=== PATIENT | male | born 1950 | race Caucasian/White ===

== ENCOUNTER 2023-11-10 11:23 | Emergency (ER) | payer MEDICARE, OTHER, SELFPAY ==
--- NOTE | ~2023-11-10 | XR_ITS ---
[XR ribs BI 3V w CXR 2V ] INDICATION: Rib pain after fall TECHNIQUE: Frontal projection of the upper ribs, frontal projection of the lower ribs, oblique projec tion of all the ribs, frontal inspiratory chest x-ray for interpretation. FINDINGS: There are no displaced rib fractures identified. There are no soft tissue abnormality see n. The lungs are clear. IMPRESSION: 1:No acute displaced rib fractures. Reviewed, dictated and finalized at location A.
[2023-11-10 11:48] VITALS: BP 128/92; PULSE 106; RESP 16; TEMP 36.3; O2SAT 100
--- NOTE | 2023-11-10 11:59 | ED.GENADULT ---
HPI - General Adult General Chief complaint: Back Pain/Injury Stated complaint: FALL/BACK INJURY Source: patient, RN notes reviewed and old records reviewed Mode of arrival: ambulatory Limitations: no limitations History of Present Illness HPI narrative: 73-year-old male patient presents to [facility] with complaints mid back pain and bruising to right flank this started overnight after falling. Patient states alarm went off and he got a bed and slipped and hit a planter that was sitting on the floor. Patient denies hitting head, LOC, any other injury. Related Data Home Medications Medication Instructions Recorded Confirmed aspirin 81 mg tablet,delayed 81 mg PO DAILY 11/10/23 11/10/23 release (Adult Low Dose Aspirin) atorvastatin 20 mg tablet 20 mg PO HS 11/10/23 11/10/23 losartan 100 mg tablet 100 mg PO DAILY 11/10/23 11/10/23 metoprolol succinate 25 mg capsule 25 mg PO DAILY 11/10/23 11/10/23 sprinkle, ext. release 24 hr Allergies Allergy/AdvReac Type Severity Reaction Status Date / Time hydrocodone Allergy Unknown Verified 11/10/23 12:08 Review of Systems Constitutional: Constitutional: Reports no additional constitutional complaints, Denies body ache(s), Denies chills, Denies fatigue, Denies fever(s) and Denies headache(s) Eyes: Eyes: Reports no additional eye complaints and Denies blurry vision ENT: Reports system reviewed and no additional complaints, except as documented, Denies vertigo, Denies dizziness, Denies ear discharge, Denies otalgia, Denies facial pain, Denies headache(s), Denies nasal congestion, Denies nasal discharge, Denies sinus pain, Denies sinus pressure and Denies sore throat Cardiovascular: Cardiovascular: Reports no additional cardiovascular complaints, Denies chest pain, Denies chest pain at rest, Denies rapid heart rate and Denies dyspnea Respiratory: Respiratory: Reports no additional respiratory complaints, Denies chest congestion, Denies cough, Denies pain on inspiration, Denies pain with cough and Denies dyspnea Gastrointestinal: Gastrointestinal: Denies abdominal pain, Denies diarrhea, Denies nausea and Denies vomiting Musculoskeletal: Musculoskeletal: Reports back pain Comments: Large bruise noted to right flank Integumentary/Breasts: Skin/Breast: Denies rash Neurologic: Reports system reviewed and no additional complaints, except as documented, Denies vertigo, Denies dizziness and Denies headache(s) Endocrine: Endocrine: Denies fatigue PMFSH Past Medical History Medical History 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 There is no relevant family history pertinent to the patient complaint. Exam Const: General: cooperative, healthy appearing, no acute distress and well nourished Nutritional Appearance: well nourished Orientation/consciousness: patient oriented x3 Limitations: no limitations HENMT: Head: normal to inspection and normocephalic Ears: external ears normal Face/Nose/Sinus: normal facial exam Face and sinus: normal facial exam Mouth: Yes Normal oral and palatal mucosa present, Yes oropharynx normal and Yes moist mucous membranes Eyes: General: appearance normal, both eyes and all related structures Sclera: sclerae normal Pupils: Equal, round and reactive pupils present Resp: Effort & Inspection: normal respiratory effort, able to speak in complete sentences, no audible wheezes, no cough, no respiratory distress and no retractions Auscultation: clear to auscultation bilaterally, no crackles, no rales, no rhonchi and no wheezes Cardio: Rate: regular rate Rhythm: regular rhythm Back/Spine/Pelvis: Back: no CVA
== END 2023-11-10 13:05 | disposition home or self-care (01) ==
PROVIDERS: Emergency Provider Registered Nurse
DX: S20.221A Contusion of right back wall of thorax, initial encounter (principal); W01.0XXA Fall on same level from slipping, tripping and stumbling without subsequent striking against object, initial encounter; Z85.828 Personal history of other malignant neoplasm of skin; Z79.82 Long term (current) use of aspirin
CPT/HCPCS: 71046; 71110; 81003; 99213; G0463

== ENCOUNTER 2024-01-14 09:48 | Emergency (ER) | payer MEDICARE, OTHER, SELFPAY ==
[2024-01-14] VITALS (21 sets, daily range): BP systolic 98–119; BP diastolic 67–76; PULSE 40–100; RESP 12–19; TEMP 36.4; O2SAT 93–99
--- NOTE | ~2024-01-14 | XR_ITS ---
EXAMINATION: XR chest 2V DATE: 01/14/2024 10:52 INDICATION: Chest pain. TECHNIQUE: Frontal and lateral views of the chest were obtained. COMPARISON: Chest 2 views 11/10/2023 FINDINGS: There is a nodule in right lower lung zone overlying the right eighth rib. There is no pneu monia, pleural effusion, or pneumothorax. The heart size is normal. IMPRESSION: 1. New nodule in right lower lung zone overlying the right eighth rib, most likely a healing rib frac ture. Noncontrast chest CT is recommended to exclude lung malignancy. Reviewed, dictated and finalized at location E. IMPRESSION: 1. New nodule in right lower lung zone overlying the right eighth rib, most lik tavia a healing rib fracture. Noncontrast chest CT is recommended to exclude lung malignancy.
--- NOTE | 2024-01-14 09:50 | ECG_ITS ---
SEE SCANNED COPY FOR CONFIRMED REPORT MTDD
[2024-01-14 10:08] LABS: Basophils Percent Auto 0.2 % (0.2-1.2); Eosinophils Absolute Auto 0.1 K/mm3 (0-0.3); Eosinophils Percent Auto 0.7 % (0-4.4); Hematocrit 48.6 % (42.0-52.0); Hemoglobin 17.1 g/dL (14.0-18.0); Immature Granulocyte Absolute 0.02 K/mm3 (0.00-0.031); Immature Granulocyte Percent A 0.2 % (0-0.5); Mean Corpuscular HGB Conc 35.2 g/dl (32-36); Mean Corpuscular Hemoglobin 30.8 pg (26-34); Mean Corpuscular Volume 87.6 fl (80-100); Mean Platelet Volume 10.5 fl (7.4-10.4); Monocytes Absolute Auto 0.5 K/mm3 (0.1-0.6); Monocytes Percent Auto 5.1 % (2.6-8.5); Neutrophils Absolute Auto 8.4 K/mm3 (1.3-6.7); Neutrophils Percent Auto 78.8 % (45.5-73.1); Platelet Count Result 182 k/mm3 (150-375); Red Blood Count 5.55 M/mm3 (4.6-6.20); Red Cell Distribution Width 12.8 % (11.5-14.5); White Blood Count 10.7 K/mm3 (4.5-10.0)
[2024-01-14 10:19] LABS: Prothrombin Time 14.1 Seconds (11.1-14.7)
[2024-01-14 10:20] LABS: Alanine Aminotransferase 29 U/L (6-50); Albumin Level 4.7 g/dL (3.5-5.1); Alkaline Phosphatase 99 U/L (38-126); Anion Gap 7 mmol/L (4-12); Aspartate Amino Transferase 36 U/L (17-59); Blood Urea Nitrogen 16 mg/dL (9-20); Calcium 9.4 mg/dL (8.4-10.2); Carbon Dioxide 24 mmol/L (22-30); Chloride 107 mmol/L (98-107); Estimated CRCL calculation 97 ml/min; Estimated Glomerular Filt Rate > 60; Glucose 125 mg/dL (65-110); Lipase 53 U/L (23-300); Partial Thromboplastin Time 26.1 Seconds (22.3-36.8); Potassium 4.1 mmol/L (3.4-5.0); Sodium 138 mmol/L (137-145)
[2024-01-14 10:32] LABS: Troponin I < 0.012 ng/mL (0.000-0.034)
--- NOTE | 2024-01-14 12:01 | ED.CHESTPAIN ---
HPI - Chest Pain General Chief Complaint: Chest Pain Stated Complaint: chest pain Time Seen by Provider: 01/14/24 11:59 History of Present Illness HPI narrative: Patient is a 73-year-old male with history of coronary artery disease, hypertension, BPH here with palpitations. He states that yesterday he was feeling like his normal self. This morning when he woke up he had multiple episodes of diarrhea and abdominal discomfort. These have since subsided. He notes that around 5:36 a.m. this morning he started having palpitations. who was with him noted that he appeared to be pale and clammy at that time. He states that his heart rate was fluctuating between the 140s in the 40s per his Fitbit that he was wearing his wrist. He had some associated exertional shortness of breath throughout the morning this morning. He does note that he has not drink much water since having his diarrhea and typically does not drink very much water. He was started on Flomax throughout the last year and this does cause him to have some lower blood pressures. He has a history of 5 prior stents placed in 2004 at [facility]. Currently follows with a resawyer out of [facility]. No history of abnormal heart rhythms. He has not on any blood thinners, takes a baby aspirin. No recent travel, no recent surgeries. No lower extremity edema or calf pain. No cough or congestion. No sick contacts. Related Data Home Medications Medication Instructions Recorded Confirmed aspirin 81 mg tablet,delayed 81 mg PO DAILY 11/10/23 11/10/23 release (Adult Low Dose Aspirin) atorvastatin 20 mg tablet 20 mg PO HS 11/10/23 11/10/23 losartan 100 mg tablet 100 mg PO DAILY 11/10/23 11/10/23 metoprolol succinate 25 mg capsule 25 mg PO DAILY 11/10/23 11/10/23 sprinkle, ext. 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 HEAD: Normocephalic, atraumatic. EYES: PERRLA and EOMI. ENT: Nares clear. Mucous membranes moist. NECK: Supple. CHEST: Clear to auscultation. No respiratory distress. HEART: Tachycardia. Normal peripheral pulses. ABDOMEN: Soft, nontender, nondistended. EXTREMITIES: Normal range of motion. No edema. No calf tenderness. SKIN: Warm, dry, no rash. NEURO: No focal deficits. Alert and oriented x3. PSYCH: Normal mood and affect. Course Course Emergency Course: Chart review performed. Patient here with high heart rate, history of 5 cardiac stents, PVCs, took [employer]. Triage vitals grossly normal, mild tachycardia. Only one prior visit in our system at a local express care for fall and back injury. Triage workup reviewed, CBC grossly unremarkable. Electrolytes within normal limits on CMP. Initial troponin negative. Lipase normal. Chest x-ray shows a new nodule in the right lower lung zone overlying the right 8th rib, most likely healing rib fracture, noncontrast chest CT is recommended to exclude lung malignancy. Patient seen evaluated, nontoxic appearing, alert, oriented. Currently only feeling mild dizziness after sitting forward to take deep breaths on physical exam, otherwise feels back to his normal self. Cardiac workup is in process. Will additionally add a magnesium level given profound diarrhea as well as IV fluids and a D-dimer. Orthostatic vital signs ordered. Repeat troponin pending. Patient and family agreeable to workup and plan. Repeat tro
[2024-01-14 12:56] LABS: Magnesium 2.1 mg/dL (1.6-2.3)
[2024-01-14 12:59] LABS: D Dimer 0.56 ug/mL (<0.48)
[2024-01-14] MEDS: LACTATED RINGERS 1,000 ML 999 ML IV CONT (13:23)
[2024-01-14 13:33] LABS: Influenza A QL RT-PCR Negative (Negative); Influenza B QL RT-PCR Negative (Negative); RSV RNA, RT-PCR Negative (Negative); SARS-CoV-2 RNA PCR Negative (Negative)
--- NOTE | 2024-01-14 13:38 | ECG_ITS ---
SEE SCANNED COPY FOR CONFIRMED REPORT MTDD
[2024-01-14 13:47] LABS: Troponin I 0.017 ng/mL (0.000-0.034)
== END 2024-01-14 15:01 | disposition home or self-care (01) ==
PROVIDERS: Emergency Medicine; Emergency Provider Student in an Organized Health Care Education/Training Program
DX: R00.2 Palpitations (principal); R19.7 Diarrhea, unspecified; Z20.822 Contact with and (suspected) exposure to COVID-19; I25.10 Atherosclerotic heart disease of native coronary artery without angina pectoris; I10 Essential (primary) hypertension; N40.0 Benign prostatic hyperplasia without lower urinary tract symptoms; Z95.5 Presence of coronary angioplasty implant and graft; Z85.828 Personal history of other malignant neoplasm of skin; Z79.82 Long term (current) use of aspirin; Z79.899 Other long term (current) drug therapy; R10.9 Unspecified abdominal pain; R94.31 Abnormal electrocardiogram [ECG] [EKG]
CPT/HCPCS: 36415; 71046; 80053; 83690; 83735; 84484; 85025; 85380; 85610; 85730; 87637; 93005; 96360; 99284; J7120